=== PATIENT | female | born 1935 | race Caucasian/White ===

== ENCOUNTER 2017-12-28 17:01 | Emergency (ER) | payer MEDICARE, MEDICAID ==
[~2017-12-28] VITALS: Ht 157.5 cm; Wt 57.0 kg
[2017-12-28] MEDS ORDERED: ONDANSETRON HCL 4MG/2ML VIAL IV STA (18:12)
[2017-12-28] MEDS ORDERED: SODIUM CHLORIDE 0.9% 1,000 ML IV ONE (18:12)
[2017-12-28] MEDS ORDERED: MORPHINE SULFATE 4 MG/ML CPJ (NOT FOR IM USE) IV STA (18:12)
[2017-12-28] MEDS ORDERED: HYDRALAZINE 20MG/ML VIAL IV ONE ×3 (18:15→22:45)
[2017-12-28 18:32] LABS: HEMATOCRIT. 45.3 % (36.0-48.0); HEMOGLOBIN. 14.7 g/dL (12.0-16.0); MEAN CORPUSCULAR HEMOGLOBIN 31.5 pg (28.0-32.0); MEAN PLATELET VOLUME 8.8 fl (7.4-10.4); PLATELET 205 x1000/uL (130-400); RED BLOOD CELL COUNT 4.67 mill/uL (4.2-5.4)
[2017-12-28 18:37] LABS: INR 1.2; PROTHROMBIN TIME 12.2 sec (9.4-11.6)
[2017-12-28 18:40] LABS: CHLORIDE 111 mEq/L (98-107)
[2017-12-28 18:45] LABS: TROPONIN I 0.04 ng/mL (0.00-0.04)
[2017-12-28 19:00] LABS: PLATELET ESTIMATE NORMAL
[2017-12-28] MEDS ORDERED: HEPARIN 25,000 UNITS PREMIX 500 ML IV SCH ×2 (20:00→20:30)
[2017-12-28] MEDS ORDERED: HEPARIN 5000 UNITS/ML VIAL IV ONE (20:00)
[2017-12-28] MEDS ORDERED: IOHEXOL-350 100 ML BOTTLE ONE (20:32)
[2017-12-28] MEDS ORDERED: MORPHINE SULFATE 4 MG/ML CPJ (NOT FOR IM USE) IV ONE (22:15)
[2017-12-29] MEDS ORDERED: MORPHINE SULFATE 4 MG/ML CPJ (NOT FOR IM USE) IV ONE (00:30)
[2017-12-29 00:35] VITALS: BP 174/83
== END 2017-12-29 00:58 | disposition short-term general hospital (02) ==
LOC: ER 17:08
DX: I73.89 Other specified peripheral vascular diseases (principal); I10 Essential (primary) hypertension; E78.00 Pure hypercholesterolemia, unspecified; Z86.718 Personal history of other venous thrombosis and embolism
CPT/HCPCS: 36415; 71045; 75635; 80053; 84484; 85025; 85610; 85730; 93005; 93970; 96361; 96365; 96366; 96375; 96376; 99291; J0360; J1644; J2270; J2405; J7030; Q9967